=== PATIENT | male | born 1970 | race Caucasian/White ===

== ENCOUNTER → 2016-05-10 | Outpatient (CLI) | payer BC, OTHER ==
[~2016-05-10] MED LIST: /PANT40TA OR; AMIT10TA2 OR; ATOM40CA OR; CELE20TA OR; DEPA500T OR; FLON0.05; KLON0.5T OR; LIDO5DIS EX; NAPR500T81 OR; RITA10TA OR; RITA20TA OR; TRAZ150T OR; TRAZ50TA OR; VICO5TAB OR; ZOLO100T OR; ZOLO50TA OR
== END ==
LOC: M WUC 11:24
PROVIDERS: ATTEND Nurse Practitioner Family
DX: Z13.220 Encounter for screening for lipoid disorders (principal); F41.8 Other specified anxiety disorders

== ENCOUNTER → 2016-09-09 | Outpatient (REF) | payer OTHER, BC | LOC: M LAB REF 16:22 | PROVIDERS: ATTEND Nurse Practitioner Family | DX: E55.9 Vitamin D deficiency, unspecified (principal) ==

== ENCOUNTER → 2017-01-06 | Outpatient (CLI) | payer BC, OTHER | LOC: M WUC 16:52 | PROVIDERS: ATTEND Nurse Practitioner Family | DX: E55.9 Vitamin D deficiency, unspecified (principal) ==

== ENCOUNTER → 2017-03-18 | Outpatient (REF) | payer OTHER ==
[2017-03-18 19:57] LABS: ALBUMIN 3.8 GM/DL (3.2-5.2); ALBUMIN/GLOBULIN RATIO 1.31 (1.00-1.93); ALKALINE PHOSPHATASE 117 U/L (45-117); ALT/SGPT 52 U/L (12-78); ANION GAP 7 MEQ/L (8-16); AST/SGOT 24 U/L (7-37); BILIRUBIN,TOTAL 0.2 MG/DL (0.2-1.0); BLOOD UREA NITROGEN 11 MG/DL (7-18); CALCIUM LEVEL 8.4 MG/DL (8.5-10.1); CARBON DIOXIDE LEVEL 26 MEQ/L (21-32); CHLORIDE LEVEL 107 MEQ/L (98-107); GLOMERULAR FILTRATION RATE > 60.0 (>60); GLUCOSE, FASTING 136 MG/DL (70-105); POTASSIUM SERUM 4.5 MEQ/L (3.5-5.1); SODIUM LEVEL 140 MEQ/L (136-145); TOTAL PROTEIN 6.7 GM/DL (6.4-8.2)
== END ==
LOC: M LAB REF 17:45
PROVIDERS: ATTEND Nurse Practitioner Adult Health
DX: R56.9 Unspecified convulsions (principal); E55.9 Vitamin D deficiency, unspecified

== ENCOUNTER → 2017-07-16 | Outpatient (CLI) | payer BC, OTHER | LOC: M RAD 15:01 | DX: M25.512 Pain in left shoulder (principal) | CPT/HCPCS: 73030 ==

== ENCOUNTER → 2018-04-22 | Outpatient (REF) | payer OTHER ==
[2018-04-22 19:16] LABS: BASO % 0.4 % (0.0-1.0); EOS # 0.2 10^3/uL (0.0-0.50); EOS % 2.3 % (0.0-3.0); HEMATOCRIT 46.4 % (42.0-52.0); LYMPH % 39.4 % (24.0-44.0); MEAN CORPUSCULAR HEMOGLOBIN 30.2 pg (27.0-33.0); MEAN CORPUSCULAR HGB CONC 34.5 g/dl (32.0-36.5); MEAN CORPUSCULAR VOLUME 87.7 fl (80.0-96.0); MONO # 0.7 10^3/uL (0.0-0.8); MONO % 8.4 % (0.0-5.0); NEUTROPHILS # 3.8 10^3/uL (1.8-7.7); PLATELET COUNT, AUTOMATED 262 10^3/uL (150-450); RED BLOOD COUNT 5.29 10^6/uL (4.30-6.10); WHITE BLOOD COUNT 7.7 10^3/uL (4.0-10.0)
[2018-04-22 19:20] LABS: ALBUMIN 4.3 GM/DL (3.2-5.2); ALT/SGPT 64 U/L (12-78); BILIRUBIN,TOTAL 0.4 MG/DL (0.2-1.0); BLOOD UREA NITROGEN 8 MG/DL (7-18); CARBON DIOXIDE LEVEL 28 MEQ/L (21-32); CHLORIDE LEVEL 103 MEQ/L (98-107); CHOLESTEROL LEVEL 209 MG/DL (<200); CHOLESTEROL RISK RATIO 5.225 (<5); CREATININE FOR GFR 0.86 MG/DL (0.70-1.30); GLOMERULAR FILTRATION RATE > 60.0 (>60); GLUCOSE, FASTING 98 MG/DL (70-100); HDL CHOLESTEROL 40 MG/DL (>40); LDL CHOLESTEROL 122 MG/DL (<100); NON-HDL-C 169 MG/DL; POTASSIUM SERUM 4.2 MEQ/L (3.5-5.1); SODIUM LEVEL 138 MEQ/L (136-145); TOTAL PROTEIN 7.6 GM/DL (6.4-8.2); TRIGLYCERIDES LEVEL 237 MG/DL (<150)
[2018-04-22 19:22] LABS: TOTAL 25(OH) VITAMIN D 20.6 NG/ML (30.0-100.0)
[2018-04-22 19:24] LABS: HEMOGLOBIN A1c 5.8 %
== END ==
LOC: M LAB REF 18:52
PROVIDERS: ATTEND Nurse Practitioner Family
DX: Z13.9 Encounter for screening, unspecified (principal)

== ENCOUNTER → 2018-09-06 | Outpatient (REF) | payer OTHER ==
[~2018-09-06] MED LIST changes: -/PANT40TA OR; +PROT1TAB2 OR
[2018-09-06 18:02] LABS: ALT/SGPT 59 U/L (12-78); BILIRUBIN,TOTAL 0.3 MG/DL (0.2-1.0); BLOOD UREA NITROGEN 14 MG/DL (7-18); CALCIUM LEVEL 8.2 MG/DL (8.5-10.1); CARBON DIOXIDE LEVEL 26 MEQ/L (21-32); CHLORIDE LEVEL 109 MEQ/L (98-107); FERRITIN 202 NG/ML (26-388); GLOMERULAR FILTRATION RATE > 60.0 (>60); GLUCOSE, FASTING 130 MG/DL (70-100); IRON (FE) 109 UG/DL (65-175); POTASSIUM SERUM 4.3 MEQ/L (3.5-5.1); SODIUM LEVEL 141 MEQ/L (136-145)
[2018-09-06 18:09] LABS: TOTAL 25(OH) VITAMIN D 33.6 NG/ML (30.0-100.0)
[2018-09-06 18:11] LABS: HEMOGLOBIN A1c 5.6 %
== END ==
LOC: M LAB REF 17:10
PROVIDERS: ATTEND Nurse Practitioner Adult Health
DX: Z13.9 Encounter for screening, unspecified (principal)

== ENCOUNTER → 2022-03-03 | Outpatient (CLI) | payer BC, OTHER | LOC: M LABSMTC 10:31 | PROVIDERS: ATTEND Anesthesiology | DX: Z01.812 Encounter for preprocedural laboratory examination (principal); Z20.822 Contact with and (suspected) exposure to COVID-19 ==

== ENCOUNTER 2022-03-05 11:38 | Day surgery (SDC) | payer BC, OTHER ==
[~2022-03-05] VITALS: Ht 177.8 cm; Wt 92.9 kg
[~2022-03-05 11:38] MED LIST changes: +NS 1,000 ML IV ONE
[2022-03-05] MEDS ORDERED: propofoL 200 MG/20 ML VIAL As Ordered ONE (13:15)
[2022-03-05] MEDS ORDERED: LIDOCAINE 2% 100MG/5ML SDV (FOR ANES.) As Ordered ONE (13:15)
[2022-03-05 14:40] VITALS: BP 141/79
== END 2022-03-05 14:54 | disposition home or self-care (01) ==
LOC: M OPP 11:38
PROVIDERS: ATTEND Surgery
DX: Z12.11 Encounter for screening for malignant neoplasm of colon (principal); D12.3 Benign neoplasm of transverse colon; K21.9 Gastro-esophageal reflux disease without esophagitis; J45.909 Unspecified asthma, uncomplicated; G47.30 Sleep apnea, unspecified; G43.909 Migraine, unspecified, not intractable, without status migrainosus; F32.9 Major depressive disorder, single episode, unspecified; Z88.1 Allergy status to other antibiotic agents; Z88.6 Allergy status to analgesic agent; Z88.8 Allergy status to other drugs, medicaments and biological substances; Z99.89 Dependence on other enabling machines and devices

== ENCOUNTER → 2022-08-04 | Outpatient (REF) | payer BC, OTHER ==
[~2022-08-04] MED LIST changes: -NS 1,000 ML IV ONE
[2022-08-04 20:20] LABS: THYROID STIMULATING HORMONE 3.095 uIU/ML (0.55-4.78)
[2022-08-04 20:21] LABS: ALBUMIN 4.2 G/DL (3.2-5.2); ALKALINE PHOSPHATASE 115 U/L (46-116); ALT/SGPT 48 U/L (7.0-40); AST/SGOT 35 U/L (<34); BILIRUBIN,TOTAL 0.4 MG/DL (0.3-1.2); BLOOD UREA NITROGEN 12 MG/DL (9-23); CARBON DIOXIDE LEVEL 25 MMOL/L (20-31); CHLORIDE LEVEL 104 MMOL/L (98-107); CHOLESTEROL LEVEL 216 MG/DL (<200); CREATININE FOR GFR 0.81 MG/DL (0.70-1.30); GLOMERULAR FILTRATION RATE > 60.0 (>56); GLUCOSE, FASTING 84 MG/DL (60-100); HDL CHOLESTEROL 43.2 MG/DL (>40); LDL CHOLESTEROL 128.2 MG/DL (<100); NON-HDL-C 172.8 MG/DL; POTASSIUM SERUM 4.4 MMOL/L (3.5-5.1); SODIUM LEVEL 140 MMOL/L (136-145); TOTAL 25(OH) VITAMIN D 24.1 NG/ML (20.0-100.0); TOTAL PROTEIN 7.3 G/DL (5.7-8.2); TRIGLYCERIDES LEVEL 223 MG/DL (<150)
[2022-08-04 21:04] LABS: HIV 1&2 SCREEN CENTAUR NEGATIVE (NEGATIVE)
[2022-08-04 22:33] LABS: HEMOGLOBIN A1c 5.3 % (4.0-6.0)
== END ==
LOC: M LAB REF 17:28
PROVIDERS: ATTEND Nurse Practitioner Family
DX: E66.9 Obesity, unspecified (principal); Z11.9 Encounter for screening for infectious and parasitic diseases, unspecified

== ENCOUNTER → 2022-12-22 | Outpatient (REF) | payer OTHER, BC ==
[2022-12-22 19:00] LABS: ALBUMIN 4.1 G/DL (3.2-5.2); BILIRUBIN,DIRECT 0.2 MG/DL (<0.4); BILIRUBIN,TOTAL 0.7 MG/DL (0.3-1.2)
[2022-12-22 19:02] LABS: TOTAL 25(OH) VITAMIN D 20.3 NG/ML (20.0-100.0)
== END ==
LOC: M LAB REF 16:42
PROVIDERS: ATTEND Nurse Practitioner Family
DX: R74.01 Elevation of levels of liver transaminase levels (principal); E55.9 Vitamin D deficiency, unspecified

== ENCOUNTER → 2023-06-08 | Outpatient (REF) | payer OTHER, BC ==
[2023-06-08 15:48] LABS: ALBUMIN 4.1 G/DL (3.2-5.2); ALKALINE PHOSPHATASE 119 U/L (46-116); ALT/SGPT 30 U/L (7.0-40); AST/SGOT 17 U/L (<34); BILIRUBIN,TOTAL 0.4 MG/DL (0.3-1.2); BLOOD UREA NITROGEN 12 MG/DL (9-23); CALCIUM LEVEL 8.7 MG/DL (8.5-10.1); CARBON DIOXIDE LEVEL 29 MMOL/L (20-31); CHLORIDE LEVEL 104 MMOL/L (98-107); CHOLESTEROL LEVEL 220 MG/DL (<200); CHOLESTEROL RISK RATIO 4.84 (<5); CREATININE FOR GFR 0.82 MG/DL (0.70-1.30); GLOMERULAR FILTRATION RATE > 60.0 (>56); GLUCOSE, FASTING 107 MG/DL (60-100); HDL CHOLESTEROL 45.4 MG/DL (>40); LDL CHOLESTEROL 123.4 MG/DL (<100); NON-HDL-C 174.6 MG/DL; POTASSIUM SERUM 4.2 MMOL/L (3.5-5.1); SODIUM LEVEL 137 MMOL/L (136-145); TOTAL PROTEIN 7.4 G/DL (5.7-8.2); TRIGLYCERIDES LEVEL 256 MG/DL (<150)
[2023-06-08 15:49] LABS: TOTAL 25(OH) VITAMIN D 25.9 NG/ML (20.0-100.0)
== END ==
LOC: M LAB REF 12:34
PROVIDERS: ATTEND Nurse Practitioner Family
DX: E55.9 Vitamin D deficiency, unspecified (principal); E78.5 Hyperlipidemia, unspecified; R74.01 Elevation of levels of liver transaminase levels

== ENCOUNTER 2024-04-10 13:37 | Emergency (ER) | payer BC, OTHER ==
[~2024-04-10] VITALS: Ht 177.8 cm; Wt 91.0 kg
[2024-04-10] MEDS: KETOROLAC 30 MG/ML 1ML VIAL IV ONE (14:14)
[2024-04-10] MEDS: NS 500 ML IV ONE (14:15)
[2024-04-10] MEDS: ONDANSETRON 4MG 2ML VIAL IV ONE (14:15)
[2024-04-10 14:24] LABS: BASO % 0.3 % (0.0-1.0); EOS # 0.2 10^3/uL (0.0-0.5); EOS % 1.5 % (0.0-3.0); HEMATOCRIT 45.1 % (42.0-52.0); HEMOGLOBIN 15.7 g/dl (13.5-17.5); LYMPH # 2.3 10^3/uL (1.5-5.0); MEAN CORPUSCULAR HEMOGLOBIN 30.8 pg (27.0-33.0); MEAN CORPUSCULAR HGB CONC 34.8 g/dl (32.0-36.5); MEAN CORPUSCULAR VOLUME 88.4 fl (80.0-96.0); MONO # 1.4 10^3/uL (0.0-0.8); MONO % 11.9 % (2.0-8.0); NEUTROPHILS # 7.6 10^3/uL (1.5-8.5); PLATELET COUNT, AUTOMATED 226 10^3/uL (150-450); WHITE BLOOD COUNT 11.6 10^3/uL (4.0-10.0)
[2024-04-10 14:49] LABS: BLOOD UREA NITROGEN 16 MG/DL (9-23); CALCIUM LEVEL 8.8 MG/DL (8.5-10.1); CARBON DIOXIDE LEVEL 26 MMOL/L (20-31); CHLORIDE LEVEL 105 MMOL/L (98-107); CREATININE FOR GFR 1.07 MG/DL (0.70-1.30); GLOMERULAR FILTRATION RATE > 60.0 (>56); GLUCOSE, FASTING 117 MG/DL (60-100); POTASSIUM SERUM 3.9 MMOL/L (3.5-5.1); SODIUM LEVEL 139 MMOL/L (136-145)
[2024-04-10] MEDS ORDERED: CIPR-249 PO (16:39)
[2024-04-10] MEDS: CIPROFLOXACIN 500MG TABLET PO ONE (16:46)
[2024-04-10 16:56] VITALS: BP 148/78; TEMP 97.8; O2SAT 97
== END 2024-04-10 17:00 | disposition home or self-care (01) ==
LOC: M ED 13:37
DX: N23 Unspecified renal colic (principal); N13.30 Unspecified hydronephrosis; R31.9 Hematuria, unspecified; G47.33 Obstructive sleep apnea (adult) (pediatric); F17.200 Nicotine dependence, unspecified, uncomplicated; Z88.1 Allergy status to other antibiotic agents; Z88.8 Allergy status to other drugs, medicaments and biological substances; Z79.2 Long term (current) use of antibiotics
CPT/HCPCS: 74176; 80048; 81001; 85025; 87086; 96361; 96374; 96375; 99284; J1885; J2405

== ENCOUNTER → 2024-05-10 | Outpatient (REF) | payer BC, OTHER ==
[~2024-05-10] MED LIST changes: +CIPR-249 PO
[2024-05-10 13:40] LABS: APPEARANCE, URINE CLEAR (CLEAR); BACTERIA, URINE AUTO NEGATIVE (NEGATIVE); BILIRUBIN, URINE AUTO NEGATIVE (NEGATIVE); BLOOD, URINE BLOOD NEGATIVE (NEGATIVE); COLOR, URINE YELLOW (YELLOW); GLUCOSE, URINE (UA) AUTO NEGATIVE (NEGATIVE); KETONE, URINE AUTO NEGATIVE (NEGATIVE); LEUKOCYTE ESTERASE, URINE AUTO NEGATIVE (NEGATIVE); MUCUS, URINE SMALL (NEGATIVE); NITRITE, URINE AUTO NEGATIVE (NEGATIVE); PROTEIN, URINE AUTO NEGATIVE (NEGATIVE); RBC, URINE AUTO 0 /HPF (0-3); SQUAMOUS EPITHELIAL CELL UR AU 0 /HPF (0-6); UROBILINOGEN, URINE AUTO 0.2 mg/dL (0.0-2.0); WBC, URINE AUTO 1 /HPF (0-3)
[2024-05-10 18:53] LABS: BASO % 0.3 % (0.0-1.0); EOS # 0.4 10^3/uL (0.0-0.5); EOS % 4.8 % (0.0-3.0); HEMATOCRIT 49.5 % (42.0-52.0); HEMOGLOBIN 16.9 g/dl (13.5-17.5); LYMPH % 34.5 % (24.0-44.0); MEAN CORPUSCULAR HEMOGLOBIN 31.2 pg (27.0-33.0); MEAN CORPUSCULAR HGB CONC 34.1 g/dl (32.0-36.5); MEAN CORPUSCULAR VOLUME 91.3 fl (80.0-96.0); MONO % 11.5 % (2.0-8.0); NEUTROPHILS # 4.2 10^3/uL (1.5-8.5); NEUTROPHILS % 47.3 % (36.0-66.0); PLATELET COUNT, AUTOMATED 248 10^3/uL (150-450); RED BLOOD COUNT 5.42 10^6/uL (4.30-6.10); WHITE BLOOD COUNT 8.8 10^3/uL (4.0-10.0)
[2024-05-10 18:57] LABS: CHOLESTEROL RISK RATIO 4.81 (<5); HDL CHOLESTEROL 50.9 MG/DL (>40); LDL CHOLESTEROL 134.5 MG/DL (<100); NON-HDL-C 194.1 MG/DL
[2024-05-10 18:59] LABS: THYROID STIMULATING HORMONE 2.855 uIU/ML (0.55-4.78)
[2024-05-10 19:04] LABS: HEMOGLOBIN A1c 5.4 % (4.0-6.0)
== END ==
LOC: M LAB REF 12:01
PROVIDERS: ATTEND Nurse Practitioner Family
DX: N20.2 Calculus of kidney with calculus of ureter (principal); E78.5 Hyperlipidemia, unspecified; R73.9 Hyperglycemia, unspecified; Z68.28 Body mass index [BMI] 28.0-28.9, adult

== ENCOUNTER 2024-06-20 10:05 | Emergency (ER) | payer BC, OTHER ==
[~2024-06-20] VITALS: Ht 177.8 cm; Wt 92.0 kg
[2024-06-20 10:08] VITALS: TEMP 96
[2024-06-20] MEDS ORDERED: OMEG-28 (10:44)
[2024-06-20] MEDS ORDERED: CITA40TA7 (10:44)
[2024-06-20] MEDS ORDERED: OMEP-173 (10:44)
[2024-06-20] MEDS ORDERED: AMPH1CAP5 (10:44)
[2024-06-20] MEDS ORDERED: BUPR150T12 (10:44)
[2024-06-20 16:20] LABS: BASO % 0.3 % (0.0-1.0); EOS # 0.3 10^3/uL (0.0-0.5); EOS % 3.3 % (0.0-3.0); HEMATOCRIT 46.6 % (42.0-52.0); HEMOGLOBIN 16.4 g/dl (13.5-17.5); LYMPH # 3.2 10^3/uL (1.5-5.0); LYMPH % 34.6 % (24.0-44.0); MEAN CORPUSCULAR HGB CONC 35.2 g/dl (32.0-36.5); MEAN CORPUSCULAR VOLUME 88.1 fl (80.0-96.0); MONO # 0.8 10^3/uL (0.0-0.8); MONO % 8.2 % (2.0-8.0); NEUTROPHILS # 4.8 10^3/uL (1.5-8.5); NEUTROPHILS % 53.2 % (36.0-66.0); PLATELET COUNT, AUTOMATED 226 10^3/uL (150-450); RED BLOOD COUNT 5.29 10^6/uL (4.30-6.10); WHITE BLOOD COUNT 9.1 10^3/uL (4.0-10.0)
[2024-06-20] MEDS ORDERED: ISOVUE-370 76% 100ML VIAL As Ordered ONE (16:50)
[2024-06-20 18:00] VITALS: BP 152/86; O2SAT 97
[2024-06-20] MEDS ORDERED: AMOX500C PO (18:14)
== END 2024-06-20 18:28 | disposition home or self-care (01) ==
LOC: M ED 10:05
DX: J03.90 Acute tonsillitis, unspecified (principal); Z88.8 Allergy status to other drugs, medicaments and biological substances
CPT/HCPCS: 70491; 80047; 85025; 87486; 87581; 87633; 87798; 87880; 99284; Q9967